=== PATIENT | female | born 1940 | race African-American/Black ===

== ENCOUNTER 2022-10-09 10:22 | Emergency (ER) | payer OTHER ==
--- OUTSIDE RECORDS SUMMARY | 2022-10-09 10:25 | XMS REPORT | Continuity of Care Document ---
:1940 Author Organization [facility] t Address [address] [address] [place] [address] Care Team Providers Name Role Phone Asked, No Pcp Primary Care Physician Unavailable YAYA ISSA Attending Clinician Unavailable JOHN LANDRY Attending Clinician Unavailable MD OJHN LANDRY Attending Clinician Unavailable JOHN LANDRY Admitting Clinician Unavailable MD JOHN LANDRY Admitting Clinician Unavailable Problems Condition Condition Condition Status Onset Resolution Last Treating Co mments Source Name Details Category Date Date Treatment Clinician Date Cardiac Cardiac Disease Active [facility] arrhythmia arrhythmia [address] [facility] 00:00: [facility]osp[facility] 00 l Dizziness Dizziness Disease Active 2019-04 Met [facility] 06-05 st 00:00: Hospita 00 l Allergies, Adverse Reactions, Alerts Allergy Allergy Status Severity Reaction(s) Onset Inactive Treating Comm ents Source Name Type Date Date Clinician Cephalex Propensi Active Rash 2019-04 Method i in ty to 06-05 st adverse 00:00: Hospita reaction 00 l s to drug Lisinopr Propensi Active Other (See 2019-04 Muscle Me thodi il ty to Comments) 06-[address] adverse 00:00: Hospita reaction 00 l s to drug Social History Social Habit Start Date Stop Date Quantity Comments Source Gender identity [facility] History of Social 2022-06-14 2022-06-[address] function 00:00:00 00:00:00 Hospital Alcohol intake 2020-04-10 2020-04-10 Current drinker [facility] 00:00:00 00:00:00 of alcohol Hospital (finding) Alcohol Comment 2020-04-04 2020-04-04 social [facility] Tobacco use and 2020-04-04 2020-04-04 Smokeless [facility] exposure 00:00:00 00:00:00 tobacco non-user Hospital Sex Assigned At [birth year] [facility] 00:[facility] Smoking Status Start Date Stop Date Source Never smoked tobacco [facility] Medications Ordered Filled Start Stop Current Ordering Indication Dosage Frequency Signature Comments Components Source Medication Medication Date Date Medication? Clinician (SIG) Name Name tiotropium 2019-04 Yes 1{capsu QD Place 1 M ethodi (SPIRIVA) 2-29 le} capsule st 18 mcg per 16:11: into Hospita inhalation 21 inhaler l capsule and inhale once daily. budesonide- 2019-04 Yes 2{puff} Q.5D Inhale 2 Methodi formoteroL 2-[address] (SYMBICORT) 16:11: (two) Hospi ta 160-4.5 21 times a l mcg/actuati day. on inhaler rosuvastati 2019-04 Yes 5mg Q.5W Take 5 mg M ethodi n (CRESTOR) 2-[address] 5 mg tablet 16:11: (two) Hospi ta 21 times a l week. gabapentin 2019-04 Yes 300mg Q.5D Take 300 Me [facility] (NEURONTIN) 2-[address] 300 mg 16:11: mouth 2 Hospita capsule 21 (two) l times a day. potassium 2019-04 Yes 10meq QD Take 10 Meth indio chloride 2-[address] (K-DUR) 10 16:11: mouth Hospit a MEQ CR 21 daily. l tablet acetaminoph 2019-04 Yes 1{tbl} Q.5D Take 1 M ethodi en-codeine 2-[address] (TYLENOL 16:11: mouth 2 Hospit a WITH 21 (two) l CODEINE #3) times a 300-30 mg day .acute per tablet pain. sulfamethox 2019-04 Yes 1{tbl} Q.5D Take 1 [facility] azole-trime 2-[address] thoprim 16:11: mouth 2 Hospita (BACTRIM 21 (two) l DS) 800-160 times a mg per day. tablet amLODIPine 2019-04 Yes 10mg QD Take 10 mg M ethodi (NORVASC) 2-[address] 10 mg 16:11: daily. Hospita tablet 21 l ezetimibe 2019-04 Yes 10mg QD Take 10 mg [facility] (ZETIA) 10 2-[address] mg tablet 16:11: daily. Hospit a 21 l valsartan 2019-04 Yes 160mg QD Take 160 Met hodi (DIOVAN) 2-[address] 160 MG 16:11: mouth Hospita tablet 21 daily. l methocarbam 2019-04 Yes 500mg Q.5D Take 500 M ethodi oL 2-[address] (ROBAXIN) 16:11: mouth 2 Hospi ta 500 MG 21 (two) l tablet times a day. furosemide 2019-04 Yes 40mg QD Take 40 mg M ethodi (LASIX) 40 2-[address] mg tablet 16:11: daily. Hospit a 21 l predniSONE 2019-04 Yes 10mg Q.5D Take 10 mg M ethodi (DELTASONE) 2-[address] 10 mg 16:11: (two) Hospita tablet 21 times a l day. Immunizations Ordered Immunization Filled Immunization Date Status Commen ts Source Name Name PFIZER COVID-19 MRNA 2020-06-27 Completed [facility] 00:00:00 Hospital PFIZER COVID-19 MRNA 2020-06-06 Completed [facility] 00:00:00 Hospital Procedures This patient has no known procedures. Plan of Care Planned Activity Planned Date Details Comments Source Future Scheduled 2022-09-21 SHINGLES VACCINES (1 [facility] Test 20:51:22 of 2) [code = SHINGLES VACCINES (1 of 2)] Future Scheduled 2022-09-21 65+ [facility]OCO[address] [facility] Test 20:51:22 VACCINE (1 - PCV) [code = 65+ PNEUMOCOCCAL VACCINE (1 - PCV)] Future Scheduled 2022-09-21 COVID-19 VACCINE (3 - [facility] Test 20:51:22 Pfizer series) [code = COVID-19 VACCINE (3 - Pfizer series)] Future Scheduled 2022-09-21 INFLUENZA VACCINE [facility] Test 20:51:22 [code = INFLUENZA VACCINE] Encounters Start End Encounter Admission Attending Care Care Encounter Source Date/Time Date/Time Type Type Clinicians Facility Department ID 2020-06-27 2020-06-27 Outpatient LUIS MANUEL [facility] [id number] [address] [place] 00:00:00 00:00:[address] YAYA [address] 2020-06-06 2020-06-06 Outpatient [facility] [id number] [address] [place] 00:00:00 00:00:[address] 2020-04-04 2020-04-05 Inpatient GRIS, [facility] [id number] [place] 00:00:00 00:00:[address] JOHN [address] Results Test Description Test Time Test Comments Results Result Comments Source SARS-CoV-2 (COVID-19) RNA [Presence] in Respiratory sp ecimen by 2020-04-04 16:18:38 VIET with probe detection Test Item Value Reference Range Interpretation Comme nts SARS-CoV-2 (COVID-19) RNA [Presence] in Respiratory Not detected No t-Detected specimen by VIET with probe detection (test code = 97252-7) MARIELLA LEE
--- NOTE | 2022-10-09 10:50 | RAD REPORT ---
EXAM DESCRIPTION: [place] Single View10/09/2022 10:42 am CLINICAL HISTORY: Cough COMPARISON: 2012 FINDINGS: The lungs appear clear of acute infiltrate. The heart is normal size. Pacemaker leads in place IMPRESSION: No acute abnormalities displayed
[2022-10-09 10:51] LABS: Absolute Lymphocytes (CBC) 1.6 K/uL (0.7-4.9); Hematocrit 36.1 % (36.0-45.0); Lymphocytes % 26.2 % (15.3-44.8); MCV 98.5 fL (80-100); MPV 6.5 fL (7.6-11.3); RBC Red Blood Cell Count 3.67 M/uL (3.86-4.86)
[2022-10-09 11:07] LABS: Potassium 3.8 mEq/L (3.5-5.1)
[2022-10-09 11:08] LABS: Albumin 3.5 g/dL (3.4-5.0); Bilirubin Total 0.6 mg/dL (0.2-1.0); Protein, Total 7.2 g/dL (6.4-8.2)
--- NOTE | 2022-10-09 11:36 | RAD REPORT ---
EXAM DESCRIPTION: CT - Soft Tissue Neck W/Contr - 10/09/2022 11:19 am CLINICAL HISTORY: Neck pain with sore throat COMPARISON: August 2022 TECHNIQUE: Computed axial tomography of the neck was obtained. 100 cc Isovue 300 was administered i ntravenously. Coronal and sagittal reconstruction was performed. All CT scans are performed using dose optimization technique as appropriate and may include automated exposure control or mA/KV adjustment according to patient size. FINDINGS: The pharynx, tongue base, larynx and subglottic trachea appear unremarkable The parotid, right submandibular and thyroid glands appear unremarkable. 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
--- NOTE | 2022-10-09 11:51 | EDPHYS ---
Physician Documentation [facility] Name: Peter Brooks Age: 82 yrs Sex: Female : 1940 Arrival Date: 10/09/2022 Time: 10:22 Bed 6 Private MD: ED Physician Tomasz Doran HPI: 10/09 11:52 This 82 yrs old Black Female presents to ER via EMS with complaints of Cough, rt Congestion, Sore Throat. 11:52 Patient presents to the ED with sore throat since 25 September. At that time, the patient rt had a TeleDoc appointment with her primary care physician who obtained a negative COVID test and started her on 10 days of amoxicillin, she has completed a course of antibiotics. She states that the symptoms have not improved. She also states they have not significantly worsened either. She reports pain with swallowing but denies difficulty swallowing. Denies cough, difficulty breathing or other acute complaints. Symptoms are aching nature, nonradiating, moderate severity, no other aggravating elevating factors.. Historical: - Allergies: 10:24 Keflex; iw 10:24 Lisinopril; iw - PMHx: 10:24 COPD; GERD; Hypertension; iw - Family history:: not pertinent. ROS: 11:52 Constitutional: Negative for fever, chills, and weight loss, Cardiovascular: Negative rt for chest pain, palpitations, and edema, Respiratory: Negative for shortness of breath, cough, wheezing, and pleuritic chest pain, Abdomen/GI: Negative for abdominal pain, nausea, vomiting, diarrhea, and constipation, MS/Extremity: Negative for injury and deformity, Skin: Negative for injury, rash, and discoloration, Neuro: Negative for headache, weakness, numbness, tingling, and seizure, Psych: Negative for depression, anxiety, suicide ideation, homicidal ideation, and hallucinations. 11:52 ENT: Positive for rhinorrhea, sore throat. Exam: 11:52 Constitutional: This is a well developed, well nourished patient who is awake, alert, rt and in no acute distress. Head/Face: Normocephalic, atraumatic. Chest/axilla: Normal chest wall appearance and motion. Nontender with no deformity. No lesions are appreciated. Cardiovascular: Regular rate and rhythm with a normal S1 and S2. No gallops, murmurs, or rubs. Normal PMI, no JVD. No pulse deficits. Respiratory: Lungs have equal breath sounds bilaterally, clear to auscultation and percussion. No rales, rhonchi or wheezes noted. No increased work of breathing, no retractions or nasal flaring. Abdomen/GI: Soft, non-tender, with normal bowel sounds. No distension or tympany. No guarding or rebound. No evidence of tenderness throughout. Skin: Warm, dry with normal turgor. Normal color with no rashes, no lesions, and no evidence of cellulitis. MS/ Extremity: Pulses equal, no cyanosis. Neurovascular intact. Full, normal range of motion. Neuro: Awake and alert, GCS 15, oriented to person, place, time, and situation. Cranial nerves II-XII grossly intact. Motor strength 5/5 in all extremities. Sensory grossly intact. Cerebellar exam normal. Normal gait. Psych: Awake, alert, with orientation to person, place and time. Behavior, mood, and affect are within normal limits. 11:52 ENT: Mild posterior pharyngeal erythema without exudates, tonsillar hypertrophy, uvula is midline. 11:52 Neck: Mild anterior cervical lymphadenopathy. Vital Signs: 10:25 BP 137 / 60; Pulse 57; Resp 19; Temp 98.4; Pulse Ox 100% on R/A; iw 12:26 BP 154 / 79; Pulse 61; Resp 16; Pulse Ox 98% on R/A; Pain 2/10; iw 12:26 Pain Scale: Adult iw MDM: 10:28 Patient medically screened. rt 11:52 Differential Diagnosis: Other Pharyngitis, RPA, STORES CLERK, Garry's angina. Data reviewed: rt vital signs, nurses notes, lab test result(s), radiologic studies. I considered the following discharge prescriptions or medication management in the emergency department Medications were administered in the Emergency Department. See MAR. Independent interpretation of the following test(s) in the Emergency Department X-Ray: My interpretation is No consolidation seen on interpretation of the x-ray. Test considered but Not performed: Labs: Patient already completed a 10-day course of amoxicillin, strep screens are not likely get benefit.. Counseling: I had a detailed discussion with the patient and/or guardian regarding: the historical points, exam findings, and any diagnostic results supporting the discharge/admit diagnosis, lab results, radiology results, the need for outpatient follow up. Response to treatment: the patient's symptoms have markedly improved after treatment. 10/09 10:29 Order name: CBC with Diff; Complete Time: 11: rt 10/09 10:29 Order name: CMP; Complete Time: 11: rt 10/09 10:29 Order name: Chest Single View XRAY; Complete Time: 11: rt 10/09 10:29 Order name: CT Soft Tissue Neck W/contr; Complete Time: 11:39 rt Administered Medications: 11:53 Drug: Decadron - Dexamethasone IVP 10 mg Route: IVP; Site: right antecubital; iw 11:53 Drug: Ketorolac IVP 15 mg Route: IVP; Site: right antecubital; iw Disposition Summary: 10/09/22 11:50 Discharge Ordered Location: Home rt Problem: an ongoing problem rt Symptoms: have improved rt Condition: Stable rt Diagnosis - Acute pharyngitis, unspecified rt Followup: rt - With: Private Physician - When: 2 - 3 days - Reason: Discharge Instructions: - Discharge Summary Sheet rt - Pharyngitis rt Forms: - Medication Reconciliation Form rt - Thank You Letter rt - Antibiotic Education rt - Prescription Opioid Use rt - [email or web address] rt Prescriptions: - Prednisone 20 mg Oral Tablet - take 2 tablets by ORAL route once daily for 5 days; 10 tablet; Refills: 0, rt Product Selection Permitted Signatures: Dispatcher [employer] Elvira Leblanc RN RN iw Tomasz Doran MD MD rt
--- NOTE | 2022-10-09 11:51 | ER ---
Nurse's Notes [facility] Name: Peter Brooks Age: 82 yrs Sex: Female : 1940 Arrival Date: 10/09/2022 Time: 10:22 Bed 6 Private MD: Diagnosis: Acute pharyngitis, unspecified Presentation: 10/09 10:24 Chief complaint: EMS states: cough , congestion, burning throat pain , has been on iw amoxicillin. Coronavirus screen: Client presents with at least one sign or symptom that may indicate coronavirus-19. Ebola Screen: Patient negative for fever greater than or equal to 101.5 degrees Fahrenheit, and additional compatible Ebola Virus Disease symptoms Patient denies exposure to infectious person. Patient denies travel to an Ebola-affected area in the 21 days before illness onset. No symptoms or risks identified at this time. Initial Sepsis Screen: Does the patient meet any 2 criteria? No. Patient's initial sepsis screen is negative. Does the patient have a suspected source of infection? No. Patient's initial sepsis screen is negative. Risk Assessment: Do you want to hurt yourself or someone else? Patient reports no desire to harm self or others. 10:24 Method Of Arrival: EMS: [facility] iw 10:24 Acuity: NI 3 iw 10:25 Onset of symptoms was October 09, 2022. iw Triage Assessment: 11:30 General: Appears in no apparent distress. General: Behavior is calm, cooperative. db Respiratory: Breath sounds are clear. Historical: - Allergies: 10:24 Keflex; iw 10:24 Lisinopril; iw - PMHx: 10:24 COPD; GERD; Hypertension; iw - Family history:: not pertinent. Screenin:26 Abuse screen: Denies threats or abuse. Denies injuries from another. Nutritional iw screening: No deficits noted. Tuberculosis screening: No symptoms or risk factors identified. 12:28 [facility] ED Fall Risk Assessment (Adult) History of falling in the last 3 months, iw including since admission Score/Fall Risk Level 0 - 2 = Low Risk. Assessment: 10:48 General: Appears in no apparent distress. Behavior is calm, cooperative. Pain: iw Complains of pain in throat. 11:00 Cardiovascular: Capillary refill < 3 seconds in bilateral fingers. Respiratory: Airway iw is patent Respiratory effort is even, unlabored, Respiratory pattern is regular, symmetrical. Respiratory: Reports cough that is. Respiratory: the patient has mild shortness of breath. Respiratory: Breath sounds are clear bilaterally. Derm: Skin is intact, is healthy with good turgor. 11:30 Reassessment: Patient appears in no apparent distress at this time. Patient and/or db family updated on plan of care and expected duration. Pain level reassessed. Patient is alert, oriented x 3, equal unlabored respirations, skin warm/dry/pink. Respiratory: Breath sounds are clear. 12:28 Reassessment: Patient appears in no apparent distress at this time. Patient and/or db family updated on plan of care and expected duration. Pain level reassessed. Patient is alert, oriented x 3, equal unlabored respirations, skin warm/dry/pink. Patient states feeling better. Patient states symptoms have improved. General: Appears in no apparent distress. comfortable, Behavior is calm, cooperative. Neuro: Level of Consciousness is awake, alert, obeys commands, Oriented to person, place, time, situation. Cardiovascular: Reports None Capillary refill. Respiratory: Airway is patent Respiratory effort is even, unlabored, Respiratory pattern is regular, symmetrical. Respiratory: No deficits noted. Vital Signs: 10:25 BP 137 / 60; Pulse 57; Resp 19; Temp 98.4; Pulse Ox 100% on R/A; iw 12:26 BP 154 / 79; Pulse 61; Resp 16; Pulse Ox 98% on R/A; Pain 2/10; iw 12:26 Pain Scale: Adult iw ED Course: 10:23 Patient arrived in ED. iw 10:24 Triage completed. iw 10:25 Arm band placed on. iw 10:28 Tomasz Doran MD is Attending Physician. rt 10:30 Rosey Marquez, NINFA is Primary Nurse. db 10:44 Chest Single View XRAY In Process Unspecified. EDMS 10:48 Inserted saline lock: 22 gauge in right antecubital area, using aseptic technique. iw Blood collected. 11:21 CT Soft Tissue Neck W/contr In Process Unspecified. EDMS 12:26 Patient has correct armband on for positive identification. iw 12:27 No provider procedures requiring assistance completed. IV discontinued, intact, iw bleeding controlled, No redness/swelling at site. Pressure dressing applied. Administered Medications: 11:53 Drug: Decadron - Dexamethasone IVP 10 mg Route: IVP; Site: right antecubital; iw 11:53 Drug: Ketorolac IVP 15 mg Route: IVP; Site: right antecubital; iw Medication: 12:26 VIS not applicable for this client. iw Outcome: 11:50 Discharge ordered by MD. rt 12:27 Discharged to home via wheelchair, with family. iw 12:27 Condition: good 12:27 Discharge instructions given to patient, Instructed on discharge instructions, follow up and referral plans. Demonstrated understanding of instructions, follow-up care, Prescriptions given X 1. 12:29 Patient left the ED. iw Signatures: Dispatcher [employer] EDElvira Jackson RN RN iw Rosey Marquez RN RN db Tomasz Doran MD MD rt Corrections: (The following items were deleted from the chart) 10:26 10:25 Pulse 57bpm; Resp 19bpm; Pulse Ox 100% RA; iw iw 10:29 10:25 Pulse 57bpm; Resp 19bpm; Pulse Ox 100% RA; Temp 98.4F; iw iw
[2022-10-09] MEDS ORDERED: dexAMETHasone 10 MG/ML VIAL ONE (11:55)
[2022-10-09] MEDS ORDERED: KETOROLAC 30 MG/ML INJ ONE (11:55)
[2022-10-09 12:44] VITALS: TEMP 98.4
[2022-10-09 12:46] VITALS: BP 154/79; O2SAT 98
== END 2022-10-09 12:29 | disposition home or self-care (01) ==
LOC: ER 10:22
DX: J02.9 Acute pharyngitis, unspecified (principal); J44.9 Chronic obstructive pulmonary disease, unspecified; I10 Essential (primary) hypertension; Z88.1 Allergy status to other antibiotic agents; Z88.8 Allergy status to other drugs, medicaments and biological substances
CPT/HCPCS: 85025; 36415; 80053; 70491; 71045; 96375; 96374; 99284; Q9967; J1100

== ENCOUNTER 2023-12-16 09:52 | Observation (INO) | payer OTHER ==
[2023-12-16] MEDS ORDERED: ALBUTEROL 2.5 MG/3 ML NEB SOL ONE (10:12)
[2023-12-16] MEDS ORDERED: IPRATROPIUM BROM 0.5MG/2.5ML ONE (10:12)
[2023-12-16 10:30] LABS: Absolute Lymphocytes (CBC) 2.8 K/uL (0.7-4.9); Absolute Monocytes 1.8 K/uL (0.1-1.3); Absolute Neutrophil 9.1 K/uL (1.8-8.0); Basophils % 0.2 % (0-1.3); Eosinophils % 0.1 % (0-4.4); Hematocrit 38.1 % (36.0-45.0); Hemoglobin 12.1 g/dL (12.0-15.0); Lymphocytes % 20.2 % (15.3-44.8); MCH 31.9 pg (27.0-35.0); MCHC 31.8 g/dL (32.0-36.0); MCV 100.3 fL (80-100); MPV 7.3 fL (7.6-11.3); Neutrophils % 66.5 % (41.7-73.7); Platelets 256 thou/uL (152-406); Red Cell Distribution Width 12.3 % (12.1-15.2)
[2023-12-16 10:38] LABS: SARS-CoV-2 Antigen CONTROL BLUE LINE VIS/BG OK; SARS-CoV-2 Antigen Rapid Res Negative (Negative)
[2023-12-16 10:43] LABS: AST/SGOT 15 U/L (15-37); Albumin 3.5 g/dL (3.4-5.0); Albumin/Globulin Ratio 0.9 (1.1-1.8); Alkaline Phosphatase 77 U/L (45-117); Anion Gap 9.4 mEq/L (5.0-15.0); BUN Blood Urea Nitrogen 15 mg/dL (7-18); Bicarbonate 27 mEq/L (21-32); Bilirubin Direct 0.4 mg/dL (0-0.2); Bilirubin Indirect, Calculated 1.1 mg/dL (0.2-0.8); Bilirubin Total 1.5 mg/dL (0.2-1.0); Globulin 3.7 g/dL (2.3-3.5); Glomerular Filtration Rate 40 ml/min (=/>90); Glucose Level 113 mg/dL (74-106); NT PRO-BNP 2474 pg/mL (<450); Potassium 3.4 mEq/L (3.5-5.1); Protein, Total 7.2 g/dL (6.4-8.2); Sodium Level 141 mEq/L (136-145); Troponin High Sensitivity 30.4 pg/mL (<58.9)
[2023-12-16 10:44] LABS: ALT/SGPT < 14 U/L (13-56)
--- NOTE | 2023-12-16 12:19 | RAD REPORT ---
EXAM DESCRIPTION: RAD - Chest Single View - 12/16/2023 12:14 pm CLINICAL HISTORY: COUGH Chest pain. COMPARISON: Chest Single View dated 05/18/2023; Chest Single View dated 10/09/2022; ABDOMEN 1 VIEW KUB dated 05/27/2014; CHEST SINGLE VIEW dated 08/01/2012 FINDINGS: Portable technique limits examination quality. The lungs are grossly clear. The heart is normal in size. No displaced fractures.Dual lead pacer one[place] ce. Thoracic spine hardware. IMPRESSION: No acute intrathoracic process suspected.
[2023-12-16] MEDS ORDERED: NA CHLORIDE 0.9% 500 ML ONE (13:03)
--- NOTE | 2023-12-16 13:10 | EDPHYS ---
Physician Documentation [facility] Name: Peter Brooks Age: 83 yrs Sex: Female : 1940 Arrival Date: 12/16/2023 Time: 09:52 Bed 8 Private MD: ED Physician Tomasz Doran HPI: 12/15 15:01 This 83 yrs old Black Female presents to ER via EMS with complaints of Shortness Of rt Breath. 15:02 Patient with COPD presents to the ED with cough, congestion, shortness of breath. Has rt been present for several days. Patient states that she began to feel weak, dizzy today, home blood pressure cuff noted readings with systolic in the 80s. Denies other acute complaints at this time, symptoms are moderate severity, no other aggravating or leaving factors.. Historical: - Allergies: 09:57 Keflex; rs5 09:57 Lisinopril; rs5 - PMHx: 09:57 COPD; GERD; Hypertension; rs5 - PSHx: 09:57 None; rs5 - Immunization history:: Adult Immunizations up to date. - Infectious Disease History:: Denies. - Social history:: Smoking status: Patient/guardian denies using tobacco, but has a distant history of tobacco abuse. ROS: 15:10 Constitutional: Negative for fever, chills, and weight loss, Cardiovascular: Negative rt for chest pain, palpitations, and edema, Abdomen/GI: Negative for abdominal pain, nausea, vomiting, diarrhea, and constipation, Skin: Negative for injury, rash, and discoloration, 15:10 Respiratory: Positive for cough, shortness of breath, 15:10 Neuro: Positive for dizziness, weakness, Exam: 15:10 Constitutional: This is a well developed, well nourished patient who is awake, alert, rt and in no acute distress. Head/Face: Normocephalic, atraumatic. Chest/axilla: Normal chest wall appearance and motion. Nontender with no deformity. No lesions are appreciated. Cardiovascular: Regular rate and rhythm with a normal S1 and S2. No gallops, murmurs, or rubs. Normal PMI, no JVD. No pulse deficits. Abdomen/GI: Soft, non-tender, with normal bowel sounds. No distension or tympany. No guarding or rebound. No evidence of tenderness throughout. Skin: Warm, dry with normal turgor. Normal color with no rashes, no lesions, and no evidence of cellulitis. MS/ Extremity: Pulses equal, no cyanosis. Neurovascular intact. Full, normal range of motion. Neuro: Awake and alert, GCS 15, oriented to person, place, time, and situation. Cranial nerves II-XII grossly intact. Motor strength 5/5 in all extremities. Sensory grossly intact. Cerebellar exam normal. Normal gait. 15:10 ECG was reviewed by the Attending Physician. 15:10 Respiratory: Coarse breath sounds with wheezes, more pronounced on the right compared to the left, no respiratory distress, Vital Signs: 09:54 BP 101 / 77; Pulse 67; Resp 22; Pulse Ox 97% on R/A; rs5 10:24 BP 95 / 65; Pulse 77; Resp 18; Pulse Ox 98% on R/A; rs5 11:10 BP 113 / 87; Pulse 77; Resp 17; Pulse Ox 98% on R/A; rs5 13:49 BP 154 / 98; Pulse 81; Resp 17; Pulse Ox 97% on R/A; rs5 14:58 BP 132 / 67; Pulse 84; Resp 17; Temp 98; Pulse Ox 99% on R/A; rs5 16:15 BP 137 / 73; Pulse 72; Resp 16; Pulse Ox 98% on R/A; rs5 MDM: 09:56 Patient medically screened. rt 15:16 Differential diagnosis: COPD, pneumonia, hypertension, CHF. Antibiotic administration: rt Not indicated, the patient does not have an appreciated infiltrate. Data reviewed: vital signs, nurses notes, lab test result(s), EKG, radiologic studies. Consideration of Admission/Observation Patient was admitted/placed on observation. Management of patient was discussed with the following: Hospitalist: Agrees to admit. I considered the following discharge prescriptions or medication management in the emergency department Medications were administered in the Emergency Department. See MAR. Independent interpretation of the following test(s) in the Emergency Department X-Ray: My interpretation is No pneumonia seen on my interpretation of x-ray images. Care significantly affected by the following chronic conditions: Chronic Obstructive Pulmonary Disease. Counseling: I had a detailed discussion with the patient and/or guardian regarding the historical points, exam findings, and any diagnostic results supporting the discharge/admit diagnosis, lab results, radiology results, the need for further work-up and treatment in the hospital. Response to treatment: the patient's symptoms have markedly improved after treatment. 12/15 10:05 Order name: Basic Metabolic Panel; Complete Time: 10:45 rt 12/15 10:05 Order name: CBC with Diff; Complete Time: 10:45 rt 12/15 10:05 Order name: LFT's; Complete Time: 10:45 rt 12/15 10:05 Order name: Magnesium; Complete Time: 10:45 rt 12/15 10:05 Order name: NT PRO-BNP; Complete Time: 10:45 rt 12/15 10:05 Order name: Troponin HS; Complete Time: 10:45 rt 12/15 10:05 Order name: Influenza Screen (a \T\ B); Complete Time: 10:45 rt 12/15 10:05 Order name: SARS RAPID; Complete Time: 10:45 rt 12/15 14:46 Order name: Urinalysis w/ reflexes EDMS 12/15 14:46 Order name: CBC with Automated Diff EDMS 12/15 14:46 Order name: CBC with Automated Diff EDMS 12/15 14:46 Order name: Comprehensive Metabolic Panel EDMS 12/15 14:46 Order name: Comprehensive Metabolic Panel EDMS 12/15 14:46 Order name: Creatine Phosphokinase EDMS 12/15 14:46 Order name: Creatine Phosphokinase EDMS 12/15 14:46 Order name: Creatine Phosphokinase EDMS 12/15 14:46 Order name: Lipid Profile EDMS 12/15 14:46 Order name: Lipid Profile EDMS 12/15 14:46 Order name: Magnesium EDMS 12/15 14:46 Order name: Magnesium EDMS 12/15 14:46 Order name: Phosphorus EDMS 12/15 14:46 Order name: Phosphorus EDMS 12/15 10:05 Order name: XRAY Chest (1 view); Complete Time: 12:19 rt 12/15 14:46 Order name: Echo with Doppler EDMS 12/15 10:05 Order name: EKG; Complete Time: 10:05 rt 12/15 10:05 Order name: Cardiac monitoring; Complete Time: 10:11 rt 12/15 10:05 Order name: EKG - Nurse/Tech; Complete Time: 10:17 rt 12/15 10:05 Order name: IV Saline Lock; Complete Time: 10:12 rt 12/15 10:05 Order name: Labs collected and sent; Complete Time: 10:17 rt 12/15 10:05 Order name: O2 Per Protocol; Complete Time: 10:12 rt 12/15 10:05 Order name: O2 Sat Monitoring; Complete Time: 10:12 rt EC:10 Rate is 76 beats/min. Rhythm is regular, Normal Sinus Rhythm with PACs, Right bundle rt branch block. Left axis deviation noted. OK interval is normal. QRS interval is normal. QT interval is normal. No Q waves. Administered Medications: 10:37 Drug: DuoNeb Nebulize (3:1) (2.5 mg - 0.5 mg) 3 ml Nebulizer once Route: Nebulizer; ko1 11:05 Follow up: Response: No adverse reaction rs5 13:10 Drug: NS 0.9% IV 500 ml IV at bolus once Route: IV; Rate: bolus; Site: left antecubital;rs5 13:41 Follow up: IV Status: Completed infusion rs5 Disposition Summary: 12/16/23 13:09 Hospitalization Ordered Notes: Hospitalization Status: Observation rt Provider: Cory Caldwell rt Location: Telemetry/MedSurg (observation) rt Condition: Stable rt Problem: new rt Symptoms: have improved rt Bed/Room Type: Standard rt Room Assignment: 209(12/16/23 14:54) bd Diagnosis - COPD exacerbation rt - Acute kidney injury rt - Hypotension rt Forms: - Medication Reconciliation Form rt - SBAR form rt - Leadership Thank You Letter rt Signatures: Dispatcher [employer] EDMS Swetha Burch bd Vicky Aquino, RN RN ko1 Tomasz Doran MD MD rt Moris Baker RN RN rs5 Corrections: (The following items were deleted from the chart) 10:05 10:05 BASIC METABOLIC PANEL+C.LAB.BRZ ordered. EDMS EDMS 10:05 10:05 CBC+H.LAB.BRZ ordered. EDMS EDMS 10:05 10:05 HEPATIC FUNCTION+C.LAB.BRZ ordered. EDMS EDMS 10:05 10:05 MAGNESIUM+C.LAB.BRZ ordered. EDMS EDMS 10:05 10:05 PROBNP+C.LAB.BRZ ordered. EDMS EDMS 10:05 10:05 Troponin High Sensitivity+C.LAB.BRZ ordered. EDMS EDMS 14:54 13:09 rt bd
--- NOTE | 2023-12-16 13:10 | ER ---
Nurse's Notes [facility] Name: Peter Brooks Age: 83 yrs Sex: Female : 1940 Arrival Date: 12/16/2023 Time: 09:52 Bed 8 Private MD: Diagnosis: COPD exacerbation;Acute kidney injury;Hypotension Presentation: 12/15 09:54 Chief complaint: EMS states: Cough, dizziness, and multiple low blood pressure readings rs5 80's systolic since yesterday. Coronavirus screen: At this time, the client does not indicate any symptoms associated with coronavirus-19. Ebola Screen: No symptoms or risks identified at this time. Initial Sepsis Screen: Does the patient meet any 2 criteria?. Initial Sepsis Screen: Does the patient meet any 2 criteria? RR > 20 per min. Yes Does the patient have a suspected source of infection? No. Patient's initial sepsis screen is negative. Risk Assessment: Do you want to hurt yourself or someone else? Patient reports no desire to harm self or others. Onset of symptoms was December 16, 2023. 09:54 Method Of Arrival: EMS: [facility] rs5 09:54 Acuity: NI 3 rs5 09:58 Care prior to arrival: Medication(s) given: Albuterol Neb x 1, 125 mg Solu-Medrol IV IV rs5 initiated. 20 GA, in the left antecubital area. Triage Assessment: 10:00 General: Appears uncomfortable, Behavior is calm, cooperative. Respiratory: rs5 Respiratory: Reports shortness of breath Respiratory effort is even, unlabored, Respiratory pattern is regular, symmetrical, Onset: The symptoms/episode began/occurred. Historical: - Allergies: 09:57 Keflex; rs5 09:57 Lisinopril; rs5 - PMHx: 09:57 COPD; GERD; Hypertension; rs5 - PSHx: 09:57 None; rs5 - Immunization history:: Adult Immunizations up to date. - Infectious Disease History:: Denies. - Social history:: Smoking status: Patient/guardian denies using tobacco, but has a distant history of tobacco abuse. Screenin:00 [facility] ED Fall Risk Assessment (Adult) History of falling in the last 3 months, rs5 including since admission No falls in past 3 months (0 pts) Confusion or Disorientation No (0 pts) Intoxicated or Sedated No (0 pts) Impaired Gait Yes (1 pt) Mobility Assist Device Used Yes (1 pt) Altered Elimination No (0 pt) Score/Fall Risk Level 0 - 2 = Low Risk Oriented to surroundings, Maintained a safe environment. Abuse screen: Denies threats or abuse. Nutritional screening: No deficits noted. Tuberculosis screening: No symptoms or risk factors identified. Assessment: 10:00 General: Appears uncomfortable, Behavior is calm, cooperative. Pain: Complains of pain rs5 in head Pain currently is 4 out of 10 on a pain scale. Quality of pain is described as aching, Is continuous. Neuro: Level of Consciousness is awake, alert, obeys commands, Oriented to person, place, time, situation. Cardiovascular: Patient's skin is warm and dry. Rhythm is. Respiratory: Reports shortness of breath cough that is Airway is patent Respiratory effort is even, unlabored, Respiratory pattern is regular, symmetrical, GI: Abdomen is round non-distended, Abd is soft and non tender X 4 quads. : No signs and/or symptoms were reported regarding the genitourinary system. EENT: No signs and/or symptoms were reported regarding the EENT system. Derm: Skin is intact, Skin is pink, warm \\T\\ dry. Musculoskeletal: Range of motion: intact in all extremities, Reports generalized weakness. 11:10 Reassessment: Patient and/or family updated on plan of care and expected duration. Pain rs5 level reassessed. Patient is alert, oriented x 3, equal unlabored respirations, skin warm/dry/pink. Patient states feeling better. 11:38 Reassessment: No changes from previously documented assessment. rs5 13:01 Reassessment: Patient and/or family updated on plan of care and expected duration. Pain rs5 level reassessed. Patient is alert, oriented x 3, equal unlabored respirations, skin warm/dry/pink. 13:49 Reassessment: Patient and/or family updated on plan of care and expected duration. Pain rs5 level reassessed. Patient is alert, oriented x 3, equal unlabored respirations, skin warm/dry/pink. 15:10 Reassessment: 3 failed attempts to call 2nd floor to notify staff that report was rs5 faxed, no answer. 16:20 Reassessment: Patient and/or family updated on plan of care and expected duration. Pain rs5 level reassessed. Patient is alert, oriented x 3, equal unlabored respirations, skin warm/dry/pink. Vital Signs: 09:54 BP 101 / 77; Pulse 67; Resp 22; Pulse Ox 97% on R/A; rs5 10:24 BP 95 / 65; Pulse 77; Resp 18; Pulse Ox 98% on R/A; rs5 11:10 BP 113 / 87; Pulse 77; Resp 17; Pulse Ox 98% on R/A; rs5 13:49 BP 154 / 98; Pulse 81; Resp 17; Pulse Ox 97% on R/A; rs5 14:58 BP 132 / 67; Pulse 84; Resp 17; Temp 98; Pulse Ox 99% on R/A; rs5 16:15 BP 137 / 73; Pulse 72; Resp 16; Pulse Ox 98% on R/A; rs5 ED Course: 09:54 Patient arrived in ED. ko1 09:54 Moris Baker, NINFA is Primary Nurse. rs5 09:55 Tomasz Doran MD is Attending Physician. rt 09:57 Triage completed. rs5 10:00 Patient has correct armband on for positive identification. Placed in gown. Bed in low rs5 position. Call light in reach. Side rails up X2. 10:00 No provider procedures requiring assistance completed. rs5 12:16 XRAY Chest (1 view) In Process Unspecified. EDMS 13:08 Cory Caldwell MD is Hospitalizing Provider. rt 13:43 1343 CM met with patient at bedside in ED exam room. Patient identified by name and ane .Demographic sheet confirmed. Ms. Brooks states she lives alone in an apartment complex on the 2nd floor; apartment complex is equipped with an elevator that allows for no physical limitations Patient states prior to admission, she performs ADLs independently with use of a rollator, and a "cooking chair". Other DME includes a shower chair, and a nebulizer. No HH, no home oxygen and does have an MPOA in place. Patient states she reports twice a week to [facility] \\T\\ Consulting for OT, after finishing PT a few weeks prior. Mr Fontanez's plan is to return home upon discharge and states that her niece Irish will be her transportation home. Cm team will continue to follow and coordinate care. 16:20 Patient admitted, IV remains in place. rs5 Administered Medications: 10:37 Drug: DuoNeb Nebulize (3:1) (2.5 mg - 0.5 mg) 3 ml Nebulizer once Route: Nebulizer; ko1 11:05 Follow up: Response: No adverse reaction rs5 13:10 Drug: NS 0.9% IV 500 ml IV at bolus once Route: IV; Rate: bolus; Site: left antecubital;rs5 13:41 Follow up: IV Status: Completed infusion rs5 Medication: 10:23 VIS not applicable for this client. rs5 Outcome: 13:09 Decision to Hospitalize by Provider. rt 16:20 Admitted to Med/surg accompanied by tech, rs5 16:20 Condition: stable rs5 16:20 Instructed on the need for admit, Demonstrated understanding of instructions, 16:26 Patient left the ED. ko1 Signatures: Dispatcher [employer] EDMS Vicky Aquino RN RN ko1 Tomasz Doran MD MD rt Moris Baker RN RN rs5 Shannen Horton RN RN ane Corrections: (The following items were deleted from the chart) 10:00 09:54 BP 151 / 56; Pulse 67bpm; Resp 22bpm; Pulse Ox 99% Non-rebreather mask; rs5 rs5 10:18 09:58 Care prior to arrival: Medication(s) given: Albuterol Neb x 1, 125 mg Solu-Medrol rs5 IV IV initiated. 20 GA, in the left antecubital area, rs5 10:18 09:54 BP 101 / 77; Pulse 67bpm; Resp 22bpm; Pulse Ox 99% Non-rebreather mask; rs5 rs5 19:03 18:01 BP 137 / ???; Pulse 72bpm; Resp 16bpm; Pulse Ox 98% RA; rs5 rs5 19:03 16:15 BP 137 / ???; Pulse 72bpm; Resp 16bpm; Pulse Ox 98% RA; rs5 rs5
--- NOTE | 2023-12-16 14:28 | P.HP ---
Certification for Inpatient Patient admitted to: Observation With expected LOS: <2 Midnights Patient will require the following post-hospital care: None Practitioner: I am a practitioner with admitting privileges, knowledge of patient current condition, hospital course, and medical plan of care. Services: Services provided to patient in accordance with Admission requirements found in Title 42 Section 412.3 of the Code of Federal Regulations <Haley Richards - Last Filed: 12/16/23 18:08> Patient History Date of Service: 12/16/23 Reason for admission: COPD exacerbation, [place], Hypotension History of Present Illness: Mrs. Brooks is a 83-year-old female with a past medical history of hypertension, hyperlipidemia, CHF, and COPD. She presented to the emergency department with a complaint of worsening shortness of breath and productive cough times several days. On arrival to the emergency department today, she was found to be hypotensive with the SBP of 80. She has recently seen Dr. Guerrero for a colonoscopy and Dr. Flores for evaluation of her pacemaker. Pacemaker tested well and no new battery is needed for 10 years per patient report . She states carvedilol and clonidine have been added to her medication regimen. She states treatment with nebulizers in the emergency department have helped and she is currently able to eat a turkey sandwich without distress. Labs: Imaging: "No acute intrathoracic abnormality." Home medications list reviewed: Yes - Past Medical/Surgical History Diabetic: No -: COPD -: HTN -: CHF -: HLD -: Pacemaker -: Back surgery Psychosocial/ Personal History: Lives at home, has rollator and electric wheelchair - Social History Smoking Status: Former smoker Alcohol use: No CD- Drugs: No Caffeine use: No Place of Residence: Home <Haley Richards - Last Filed: 12/16/23 18:08> Date of Service: 12/16/23 <Cory Caldwell - Last Filed: 12/16/23 21:33> Allergies cephalexin monohydrate [From Keflex] Allergy (Verified 08/03/11 12:43) Hives/Rash lisinopril Adverse Reaction (Mild, Verified 05/24/12 00:07) Shortness of breath Home Medications: Esomeprazole Mag Trihydrate [Nexium] 40 mg PO DAILY 08/09/11 Ezetimibe [Zetia*] 10 mg PO DAILY 08/09/11 Tiotropium Theodosia [Spiriva] 1 spray IH DAILY 08/09/11 Tizanidine HCl 4 mg PO DAILY 08/09/11 Furosemide [Lasix] 40 mg PO DAILY 05/24/12 Codeine/APAP [Tylenol W/Codeine #3 tab] 1 tab PO Q6HP PRN 03/14/16 Gabapentin [Neurontin] 100 mg PO BEDTIME 03/14/16 Valsartan [Diovan] 80 mg PO DAILY 03/14/16 Review of Systems 10-point ROS is otherwise unremarkable Respiratory: Cough, Shortness of Breath, SOB with Excertion Gastrointestinal: Nausea <Haley Richards - Last Filed: 12/16/23 18:08> Physical Examination - Physical Exam General: Alert HEENT: Atraumatic, Normocephalic Neck: Supple Respiratory: Crackles/rales Cardiovascular: No edema Capillary refill: <2 Seconds Gastrointestinal: Soft and benign Musculoskeletal: No clubbing, No swelling Integumentary: No rashes Neurological: Normal speech, Normal tone, Normal affect Lymphatics: No axilla or inguinal lymphadenopathy External genitalia: Deferred Rectal: Deferred - Studies Laboratory Data (last 24 hrs) 12/16/23 12/16/23 10:16 10:16 WBC 13.70 H Hgb 12.1 Hct 38.1 Plt Count 256 Sodium 141 Potassium 3.4 L BUN 15 Creatinine 1.33 H Glucose 113 H Magnesium 2.0 Total Bilirubin 1.5 H AST 15 ALT < 14 Alkaline Phosphatase 77 Microbiology Data (last 24 hrs): 12/16/23 10:20 Nasopharnyx Influenza Type A Antigen Screen - Final 12/16/23 10:20 Nasopharnyx Influenza Type B Antigen Screen - Final <Haley Richards - Last Filed: 12/16/23 18:08> - Studies Laboratory Data (last 24 hrs) 12/16/23 12/16/23 10:16 10:16 WBC 13.70 H Hgb 12.1 Hct 38.1 Plt Count 256 Sodium 141 Potassium 3.4 L BUN 15 Creatinine 1.33 H Glucose 113 H Magnesium 2.0 Total Bilirubin 1.5 H AST 15 ALT < 14 Alkaline Phosphatase 77 Microbiology Data (last 24 hrs): 12/16/23 10:20 Nasopharnyx Influenza Type A Antigen Screen - Final 12/16/23 10:20 Nasopharnyx Influenza Type B Antigen Screen - Final <Cory Caldwell - Last Filed: 12/16/23 21:33> Assessment and Plan - Plan COPD exacerbation Plan: Nebs, steroids, and antibiotics O2 per protocol Peak flow measurement Outpatient spirometry or PFT Repeat chest x-ray Hypertension with CHF (pacemaker) and [place] No documented echo Echo Strict I&O Lasix 20 mg IV daily Med list clarification for anticoagulant Hyperlipidemia Continue home medications Chronic pain/constipation Continue home medications VTE/GI prophylaxis - Advance Directives Does patient have a Living Will: Yes Does patient have a Durable POA for Healthcare: Yes <Haley Richards - Last Filed: 12/16/23 18:08> - Plan Pt seen and examined. I agree with the note by the SALES TRAINEE. Pt is an 83yo female with past medical history of hypertension, hyperlipidemia, CHF, and COPD who presents with SOB and productive cough. The symptoms progressively worsened and pt came to the ER for evaluation. On admission, lab studies show wbc 13.7, Hgb 12.1, K 3.4, Cr 1.33, BNP 2474. She presented with SBP in the 80s. Of note, pt started taking coreg and clonidine recently. At bedside, pt is in NAD. A/P: Acute COPD exacerbation: Continue steroid, abx, oxygen and duoneb. Consult Pulm Hypotension: resolved. Hypokalemia: K is 3.4. Will replete and monitor. Elevated BNP 2474. Will f/u Echo. Continue lasix 20mg iv daily, strict I/O and daily weight. HLD: Statin Htn: Continue home med. DVT ppx: SCD Code: full <Cory Caldwell - Last Filed: 12/16/23 21:33>
[2023-12-16] MEDS ORDERED: methocarbamoL 500 MG TAB PO PRN (14:37)
[2023-12-16] MEDS: carvediloL 3.125 MG TAB PO SCH (17:44)
[2023-12-16] MEDS: ALBUTEROL 2.5 MG/3 ML NEB SOL NEB SCH (19:59)
[2023-12-16] MEDS: IPRATROPIUM BROM 0.5MG/2.5ML NEB SCH (19:59)
[2023-12-16] MEDS: cloNIDine HCL 0.1 MG TAB PO SCH (21:53)
[2023-12-16] MEDS: EZETIMIBE 10 MG TAB PO SCH (21:54)
[2023-12-16] MEDS: VALSARTAN 80 MG TAB PO SCH (21:54)
[2023-12-16] MEDS: ROSUVASTATIN 5 MG TAB PO SCH (21:54)
[2023-12-16] MEDS: ENOXAPARIN 40 MG/0.4 ML SQ SCH (21:55)
[2023-12-17 06:29] LABS: Absolute Lymphocytes (CBC) 1.1 K/uL (0.7-4.9); Absolute Monocytes 1.3 K/uL (0.1-1.3); Basophils % 0.1 % (0-1.3); Hematocrit 35.3 % (36.0-45.0); Hemoglobin 11.8 g/dL (12.0-15.0); Lymphocytes % 6.6 % (15.3-44.8); MCH 32.8 pg (27.0-35.0); MCHC 33.6 g/dL (32.0-36.0); MCV 97.9 fL (80-100); MPV 7.4 fL (7.6-11.3); Monocytes % 7.8 % (3.3-12.3); Neutrophils % 85.5 % (41.7-73.7); Platelets 275 thou/uL (152-406); RBC Red Blood Cell Count 3.61 M/uL (3.86-4.86); Red Cell Distribution Width 12.2 % (12.1-15.2)
[2023-12-17 06:43] LABS: AST/SGOT 15 U/L (15-37); Albumin 2.9 g/dL (3.4-5.0); Albumin/Globulin Ratio 0.7 (1.1-1.8); Alkaline Phosphatase 78 U/L (45-117); Anion Gap 11.4 mEq/L (5.0-15.0); BUN Blood Urea Nitrogen 19 mg/dL (7-18); Bicarbonate 27 mEq/L (21-32); Bilirubin Total 0.7 mg/dL (0.2-1.0); Creatine Phosphokinase 106 U/L (26-192); Globulin 4.2 g/dL (2.3-3.5); Glomerular Filtration Rate 53 ml/min (=/>90); Glucose Level 139 mg/dL (74-106); HDL Cholesterol 73 mg/dL (40-60); LDL Cholesterol, Calculated 75 mg/dL (<130); LDL Cholesterol,Calc NonReport 75; Potassium 4.4 mEq/L (3.5-5.1); Protein, Total 7.1 g/dL (6.4-8.2); Sodium Level 143 mEq/L (136-145)
[2023-12-17 06:44] LABS: ALT/SGPT < 14 U/L (13-56)
[2023-12-17] MEDS: FUROSEMIDE 20 MG/ 2ML VIAL IV SCH (08:19)
[2023-12-17] MEDS: POTASSIUM CL SA 10 MEQ TAB PO SCH (08:21)
[2023-12-17 08:56] LABS: Specific Gravity 1.017 (1.005-1.030); Sqamous Epithelial <5 /HPF (None Seen); Urine Bilirubin NEGATIVE (Negative); Urine Blood Negative (Negative); Urine Clarity Turbid (Clear); Urine Color Light-Yellow (Yellow); Urine Culture Reflex Order NOT NEEDED; Urine Glucose NEGATIVE (Negative); Urine Ketones NEGATIVE (Negative); Urine Microscopic Reflex YN ORDER UMIC; Urine Mucus Slight /HPF (None Seen); Urine Nitrite NEGATIVE (Negative); Urine Protein NEGATIVE (Negative); Urine RBC <5 /HPF (None Seen); Urine Urobilinogen Normal (Normal); Urine WBC <5 /HPF (<5)
[2023-12-17 08:57] LABS: Blood Morphology Comment NOT SEEN (NOT SEEN); Platelet Estimate ADEQ; White Blood Cell Scan OK (OK)
[2023-12-17] MEDS ORDERED: ENOXAPARIN 40 MG/0.4 ML SQ SCH (09:00)
[2023-12-17 09:01] LABS: Calcium Oxalate Crystals- Ur Few /HPF (None Seen); Urine Bacteria 20-50 /HPF (<20)
[2023-12-17] MEDS: ACETAMINOPHEN 325 MG TABLET PO PRN (10:06)
--- NOTE | 2023-12-17 12:49 | P.DS ---
Admission Date: 12/16/23 Discharge Date: 12/17/23 Reason for Admission: COPD exacerbation, [place], Hypotension Brief History of Present Illness: Mrs. Brooks is a 83-year-old female with a past medical history of hypertension, hyperlipidemia, CHF, and COPD. She presented to the emergency department with a complaint of worsening shortness of breath and productive cough times several days. On arrival to the emergency department today, she was found to be hypotensive with the SBP of 80. She has recently seen Dr. Guerrero for a colonoscopy and Dr. Flores for evaluation of her pacemaker. Pacemaker tested well and no new battery is needed for 10 years per patient report . She states carvedilol and clonidine have been added to her medication regimen. She states treatment with nebulizers in the emergency department have helped and she is currently able to eat a turkey sandwich without distress. Hospital Course: Ms. Brooks remains hoarse, cough has improved modestly, she has not required oxygen, neb treatments appear to make her more comfortable. We will send her home with Levaquin secondary to COPD exacerbation. Her vitals remained stable. She has equipment at home necessary to continue current medication administration. We will discharge her home for follow-up with her PCP. <Louann Wolff - Last Filed: 12/17/23 13:00> Admission Date: 12/16/23 Discharge Date: 12/17/23 Hospital Course: Pt seen and examined. I agree with the note by the PROJECT DEVELOPMENT ENGINEER. OK to discharge pt with levaquin, breathing treatment and prednisone taper. Follow up with PCP and Pulmo nologist within 1 - 2 weeks. <Cory Caldwell - Last Filed: 12/17/23 13:14> Disposition: ROUTINE DISCHARGE Discharge Condition: GOOD Vital Signs/Physical Exam: Temp Pulse Resp BP Pulse Ox 97.0 F 94 H 18 128/62 94 12/17/23 08:00 12/17/23 08:20 12/17/23 08:00 12/17/23 08:20 12/17/23 08:00 General: Alert HEENT: Atraumatic, Normocephalic Neck: Supple Respiratory: Normal air movement, Other (hoarse cough) Cardiovascular: Normal pulses, Regular rate/rhythm Capillary refill: <2 Seconds Gastrointestinal: Normal bowel sounds, Soft and benign Musculoskeletal: No clubbing Integumentary: No rashes Neurological: Normal speech, Normal tone, Normal affect Lymphatics: No axilla or inguinal lymphadenopathy External genitalia: Deferred Rectal: Deferred Laboratory Data at Discharge: WBC 16.30 thou/uL (4.3-10.9) H 12/17/23 05:57 Hgb 11.8 g/dL (12.0-15.0) L 12/17/23 05:57 Hct 35.3 % (36.0-45.0) L 12/17/23 05:57 Plt Count 275 thou/uL (152-406) 12/17/23 05:57 Sodium 143 mEq/L (136-145) 12/17/23 05:57 Potassium 4.4 mEq/L (3.5-5.1) D 12/17/23 05:57 BUN 19 mg/dL (7-18) H 12/17/23 05:57 Creatinine 1.06 mg/dL (0.55-1.02) H 12/17/23 05:57 Glucose 139 mg/dL (74-106) H 12/17/23 05:57 Phosphorus 3.0 mg/dL (2.5-4.9) 12/17/23 05:57 Magnesium 2.0 mg/dL (1.6-2.4) 12/17/23 05:57 Total Bilirubin 0.7 mg/dL (0.2-1.0) 12/17/23 05:57 AST 15 U/L (15-37) 12/17/23 05:57 ALT < 14 U/L (13-56) 12/17/23 05:57 Alkaline Phosphatase 78 U/L (45-117) 12/17/23 05:57 Triglycerides 43 mg/dL (<150) 12/17/23 05:57 Cholesterol 157 mg/dL (<200) 12/17/23 05:57 HDL Cholesterol 73 mg/dL (40-60) H 12/17/23 05:57 Cholesterol/HDL Ratio 2.15 12/17/23 05:57 <Wolff,Louann Gibson - Last Filed: 12/17/23 13:00> Vital Signs/Physical Exam: Temp Pulse Resp BP Pulse Ox 97.0 F 94 H 18 128/62 94 12/17/23 08:00 12/17/23 08:20 12/17/23 08:00 12/17/23 08:20 12/17/23 08:00 Laboratory Data at Discharge: WBC 16.30 thou/uL (4.3-10.9) H 12/17/23 05:57 Hgb 11.8 g/dL (12.0-15.0) L 12/17/23 05:57 Hct 35.3 % (36.0-45.0) L 12/17/23 05:57 Plt Count 275 thou/uL (152-406) 12/17/23 05:57 Sodium 143 mEq/L (136-145) 12/17/23 05:57 Potassium 4.4 mEq/L (3.5-5.1) D 12/17/23 05:57 BUN 19 mg/dL (7-18) H 12/17/23 05:57 Creatinine 1.06 mg/dL (0.55-1.02) H 12/17/23 05:57 Glucose 139 mg/dL (74-106) H 12/17/23 05:57 Phosphorus 3.0 mg/dL (2.5-4.9) 12/17/23 05:57 Magnesium 2.0 mg/dL (1.6-2.4) 12/17/23 05:57 Total Bilirubin 0.7 mg/dL (0.2-1.0) 12/17/23 05:57 AST 15 U/L (15-37) 12/17/23 05:57 ALT < 14 U/L (13-56) 12/17/23 05:57 Alkaline Phosphatase 78 U/L (45-117) 12/17/23 05:57 Triglycerides 43 mg/dL (<150) 12/17/23 05:57 Cholesterol 157 mg/dL (<200) 12/17/23 05:57 HDL Cholesterol 73 mg/dL (40-60) H 12/17/23 05:57 Cholesterol/HDL Ratio 2.15 12/17/23 05:57 <Cory Caldwell - Last Filed: 12/17/23 13:14> Diet: AHA Activity: Ad marcell <Wolff,Louann Gibson - Last Filed: 12/17/23 13:00> <Cory Caldwell - Last Filed: 12/17/23 13:14> Home Medications: Esomeprazole Mag Trihydrate [Nexium] 40 mg PO DAILY 08/09/11 Ezetimibe [Zetia*] 10 mg PO DAILY 08/09/11 Tiotropium Union [Spiriva] 1 spray IH DAILY 08/09/11 Furosemide [Lasix] 40 mg PO DAILY 05/24/12 Codeine/APAP [Tylenol #3*] 1 tab PO Q6HP PRN 03/14/16 Gabapentin [Neurontin*] 100 mg PO BEDTIME 03/14/16 Valsartan [Diovan] 80 mg PO DAILY 03/14/16 Albuterol Neb [Proventil 0.083% Neb Soln] 2.5 mg NEB [id number] #25 amp 12/17/23 Ezetimibe [Zetia*] 10 mg PO BEDTIME tab 12/17/23 Ipratropium Neb [Atrovent*] 0.5 mg NEB [id number] #25 amp 12/17/23 Potassium Oral Tab [Klor-Con 10 mEq Tab*] 20 meq PO DAILY tab 12/17/23 carvediloL [Coreg*] 3.125 mg PO BID 6AM 6PM tab 12/17/23 cloNIDine HCL [Catapres*] 0.1 mg PO TID tab 12/17/23 levoFLOXacin [Levaquin*] 500 mg PO DAILY #7 tab 12/17/23 methocarbamoL [Robaxin*] 500 mg PO BID PRN tab 12/17/23 predniSONE [Deltasone] 20 mg PO DAILY 6 Days #9 tab 12/17/23 New Medications: Ipratropium Neb [Atrovent*] 0.5 mg NEB [id number] #25 amp Albuterol Neb [Proventil 0.083% Neb Soln] 2.5 mg NEB [id number] #25 amp levoFLOXacin [Levaquin*] 500 mg PO DAILY #7 tab predniSONE [Deltasone] 20 mg PO DAILY 6 Days #9 tab Physician Discharge Instructions: Ms. Brooks remains hoarse, cough has improved modestly, she has not required oxygen, neb treatments appear to make her more comfortable. [facility] to [facility] exacerbation. Her vitals remained stable. She has equipment at home necessary to continue current medication administration. We will discharge her home for follow-up with her PCP. She will be discharged with her regular medications minus tizanidine secondary to hypotensive effects. Albuterol and Atrovent ampules for her nebulizer and Levaquin 500 mg p.o. #7 will be given. It was noted that Ms. Brooks is not on anticoagulants. As she has a pacemaker, she is asked to speak to her PCP and Manufacturer'S Representative if one is recommended for her. She should follow-up with MARIA A Ennis in 1 week Followup: SONJA GRANT [Primary Care Provider] -
--- NOTE | 2023-12-17 14:34 | ECHO ---
HEIGHT: 5 ft 1 in WEIGHT: 196 lb 0 oz DATE OF STUDY: 12/17/[address]: Haley Richards NP 2-DIMENSIONAL: YES M.MODE: YES DOPPLER: YES COLOR FLOW: YES TDS: PORTABLE: YES DEFINITY: BUBBLE STUDY: DIAGNOSIS: CONGESTIVE HEART FAILURE CARDIAC HISTORY: CATHERIZATION: SURGERY: PROSTHETIC VALVE: PACEMAKER: MEASUREMENTS (cm) DIASTOLIC (NORMALS) SYSTOLIC (NORMALS) IVSd 1.0 (0.6-1.2) LA Diam 4.2 (1.9-4.0) LVEF 60-65% LVIDd 4.7 (3.5-5.7) LVIDs 2.9 (2.0-3.5) %FS 39% LVPWd 1.3 (0.6-1.2) Ao Diam 3.0 (2.0-3.7) 2 DIMENSIONAL ASSESSMENT: RIGHT ATRIUM: NORMAL LEFT ATRIUM: NORMAL RIGHT VENTRICLE: NORMAL LEFT VENTRICLE: NORMAL TRICUSPID VALVE: MILD TRICUSPID REGURGITATION MITRAL VALVE: NORMAL PULMONIC VALVE: NORMAL AORTIC VALVE: MILD AORTIC REGURGITATION PERICARDIAL EFFUSION: NONE AORTIC ROOT: NORMAL LEFT VENTRICULAR WALL MOTION: NORMAL DOPPLER/COLOR FLOW: GRADE I DIASTOLIC DYSFUNCTION COMMENTS: 1. NORMAL LEFT VENTRICULAR SYSTOLIC FUNCTION, EJECTION FRACTION 60-65%, NORMAL WALL MOTION 2. GRADE I DIASTOLIC DYSFUNCTION 3. NORMAL FILLING PRESSURE (RIGHT ATRIAL PRESSURE 0-5 mmHg) TECHNOLOGIST: NELSY DE LUNA
[2023-12-17 15:44] VITALS: BMI 36.8
[2023-12-17] MEDS: HYDRALAZINE HCL 20 MG/ML VIAL IV PRN (16:04)
--- NOTE | 2023-12-17 16:57 | EKG ---
Test Date: 2023-12-16 Test Time: 10:15:41 [employer] Dealer: ABDOULAYE MEASUREMENT RESULTS: Intervals: Rate: 76 RI: 182 QRSD: 110 QT: 384 QTc: 432 Thornton: P: 78 RI: 182 QRS: -32 T: 80 INTERPRETIVE STATEMENTS: Sinus rhythm with premature atrial complexes Left axis deviation Incomplete right bundle branch block Abnormal ECG Compared to ECG 05/18/2023 17:14:05 Atrial premature complex(es) now present Incomplete right bundle-branch block now present Atrial-paced complex(es) or rhythm no longer present Electronically Signed On 12-17-23 16:53:21 CDT by Jonatan Comer
--- NOTE | 2023-12-17 18:58 | P.PN ---
Subjective Date of Service: 12/17/23 Chief Complaint: COPD exacerbation, [place], Hypotension Subjective: Improving <Louann Wolff - Last Filed: 12/17/23 18:58> Date of Service: 12/18/23 <Cory Caldwell - Last Filed: 12/18/23 21:18> Review of Systems 10-point ROS is otherwise unremarkable Respiratory: Cough <Louann Wolff - Last Filed: 12/17/23 18:58> Physical Examination - Vital Signs Temperature: 97.6 F Blood Pressure: 134/52 Pulse: 60 Respirations: 17 Pulse Ox (%): 98 - Physical Exam General: Alert, In no apparent distress, Oriented x3 HEENT: Atraumatic, Normocephalic Neck: Supple Respiratory: Normal air movement, Other (Hoarse voice, congested cough) Cardiovascular: Regular rate/rhythm, Normal S1 S2 Capillary refill: <2 Seconds Gastrointestinal: Normal bowel sounds Musculoskeletal: No clubbing, No swelling Integumentary: No rashes Neurological: Normal speech, Normal tone, Normal affect Lymphatics: No axilla or inguinal lymphadenopathy External genitalia: Deferred Rectal: Deferred <Louann Wolff - Last Filed: 12/17/23 18:58> Assessment And Plan - Plan Assessment and Plan - Plan COPD exacerbation Plan: Nebs, steroids, and antibiotics O2 per protocol Peak flow measurement Outpatient spirometry or PFT Repeat chest x-ray Hypertension with CHF (pacemaker) and [place] No documented echo Echo Strict I&O Lasix 20 mg IV daily Med list clarification for anticoagulant Hyperlipidemia Continue home medications Chronic pain/constipation Continue home medications VTE/GI prophylaxis Patient improved, declines discharge Discharge Plan: Home Plan to discharge in: 24 Hours <Louann Wolff - Last Filed: 12/17/23 18:58> - Plan Pt seen and examined. I agree with the note by the BURR MACHINE OPERATOR.Continue steroid, duoneb, and steroid. Continue other home meds. <Cory Caldwell - Last Filed: 12/18/23 21:18>
[2023-12-18] MEDS: BENZONATATE 100 MG CAP PO PRN (01:51)
[2023-12-18] MEDS: levoFLOXacin 500 MG TAB PO SCH (08:31)
[2023-12-18 09:03] VITALS: BP 117/67; TEMP 97.4
[2023-12-18 09:22] VITALS: O2SAT 96
== END 2023-12-18 10:50 | disposition home or self-care (01) ==
LOC: ER 09:52 → ERHOLD 14:37 → 2ND 15:57
PROVIDERS: ADMIT Hospitalist; ATTEND Hospitalist
DX: J44.1 Chronic obstructive pulmonary disease with (acute) exacerbation (principal); N17.9 Acute kidney failure, unspecified; I95.9 Hypotension, unspecified; I50.9 Heart failure, unspecified; E87.6 Hypokalemia; E78.5 Hyperlipidemia, unspecified; I10 Essential (primary) hypertension; G89.29 Other chronic pain; K59.00 Constipation, unspecified; Z95.0 Presence of cardiac pacemaker; Z11.52 Encounter for screening for COVID-19
CPT/HCPCS: 93005; 93306; 87070; 85025 ×2; 81001; 80048; 36415; 83735 ×2; 82550 ×2; 87205; 84100; 80061; 80076; 84484; 80053; 83880; 87804 ×2; 71045; 94640; 96360; 99285; 87811; J0360; J1940; J7613 ×8; J7644 ×8; J1650 ×2; J7040; G0378